=== PATIENT | female | born 1955 | race Caucasian/White ===

== ENCOUNTER 2017-01-23 07:35 | Day surgery (SDC) | payer BC ==
[2017-01-16 11:28] VITALS: BMI 17.6
[2017-01-23] MEDS ORDERED: PROPOFOL 20 ML ONE ×2 (07:38)
[2017-01-23 08:35] VITALS: TEMP 97.8
[2017-01-23 09:19] VITALS: BP 101/69; PULSE 60
== END 2017-01-23 09:20 | disposition home or self-care (01) ==
LOC: FASU-ENDO 07:35
PROVIDERS: ATTEND Internal Medicine Gastroenterology
PROC: 0DJD8ZZ Inspection of Lower Intestinal Tract, Via Natural or Artificial Opening Endoscopic (ICD-10-PCS; principal; 2017-01-23 08:25)
DX: Z12.11 Encounter for screening for malignant neoplasm of colon (principal)